=== PATIENT | female | born 1935 | race Caucasian/White ===

== ENCOUNTER 2018-01-29 | Observation (INO) | payer OTHER ==
[~2018-01-29] VITALS: Ht 167.6 cm; Wt 53.8 kg
[2018-01-29] VITALS (13 sets, daily range): BP systolic 113–166; BP diastolic 52–70; PULSE 58–103; RESP 16–23; TEMP 95.9–97.4; O2SAT 91–95
[2018-01-29] MEDS ORDERED: SODIUM CHLORIDE 0.9% FLUSH 10 ML FLUSH IVF PRN (00:15)
[2018-01-29] MEDS ORDERED: BP MED PO (00:23)
[2018-01-29] MEDS ORDERED: ALBUAER3 INH (00:30)
[2018-01-29] MEDS ORDERED: PRED10PA PO (00:30)
[2018-01-29] MEDS ORDERED: MULTTAB67 PO (00:30)
[2018-01-29] MEDS ORDERED: ADVA250A INH (00:30)
[2018-01-29] MEDS ORDERED: THYROID MED PO (00:30)
[2018-01-29] MEDS ORDERED: AMOX500C PO (00:30)
--- NOTE | 2018-01-29 00:40 | PD ---
HPI Chief Complaint: Numbness/Tingling Time Seen by Provider: 00:14 Travel History International Travel<30 days: No Contact w/Intl Traveler<30days: No Traveled to known affect area: No History of Present Illness HPI 82-year-old female with a past medical history of hypertension, COPD, hypothyroidism presents to the emergency room with one-week history of intermittent and recurrent numbness of the right side of the body including arms and legs. Today prior to arrival patient had another episode of numbness on the right arm and weakness in the right leg. Patient fell while walking landing on her right side. She denies loss of consciousness however she had her head and her right arm. A few minutes later patient regained her function on the right side and at this time she denies any numbness or weakness. Patient denies taking any blood thinners. She is currently on a Medrol Dosepak and amoxicillin for acute bronchitis with COPD exacerbation. Patient denies any chest pain, shortness of breath, abdominal pain, dizziness, fever or chills. PFSH Social History Tobacco Use: Yes Allergies-Medications (Allergen,Severity, Reaction): Coded Allergies: No Known Allergies (Unverified , 01/29/18) Reported Meds & Prescriptions Reported Meds & Active Scripts Active Reported Multiple Vitamin 1 Tab 1 Tab PO DAILY Prednisone (21) 10 mg tab Dose Pack (Prednisone) 10 Mg Pack 10 Mg PO DIRECTED Proair Hfa 8.5 GM Inh (Albuterol Sulfate) 90 Mcg/Act Aer 2 Puff INH Q4-6H PRN 108 mcg/actuation Advair Diskus Inh (Fluticasone-Salmeterol Inh) 250-50 Mcg/Blist Aer 1 Puff INH BID PRN Rinse mouth after use. Amoxicillin 500 Mg Cap 500 Mg PO BID [Thyroid Med] 1 Tab PO DAILY [Bp Med] 1 Tab PO DAILY Review of Systems Except as stated in HPI: all other systems reviewed are Neg General / Constitutional: No: Fever, Chills Eyes: No: Blurred Vision, Redness, Pain HENT: No: Rhinorrhea, Congestion, Neck Stiffness, Neck Pain, Earache Cardiovascular: No: Chest Pain or Discomfort, Palpitations, Dyspnea on exertion Respiratory: No: Cough, Shortness of Breath, Wheezing Gastrointestinal: No: Nausea, Vomiting, Diarrhea, Abdominal Pain, Hematochezia , Constipation Genitourinary: No: Dysuria Musculoskeletal: No: Myalgias Skin: No Rash, No Hives Neurologic: Positive: Weakness, Paresthesia, No: Dizziness, Syncope, Headache, Slurred Speech, Seizures Psychiatric: No: Suicidal Ideations Physical Exam Narrative Vital Signs Date Time Temp Pulse Resp B/P (MAP) Pulse Ox O2 Delivery O2 Flow Rate FiO2 01/29/18 00:20 74 01/29/18 00:07 97.4 80 20 153/68 (96) 93 GENERAL: Patient is alert and oriented -3 SKIN: Focused skin assessment warm/dry. Small abrasion on the right hand HEAD: Atraumatic. Normocephalic. EYES: Pupils equal and round. No scleral icterus. No injection or drainage. ENT: No nasal bleeding or discharge. Mucous membranes pink and moist. NECK: Trachea midline. No JVD. CARDIOVASCULAR: Regular rate and rhythm. No murmur appreciated. RESPIRATORY: No accessory muscle use. Clear to auscultation. Breath sounds equal bilaterally. GASTROINTESTINAL: Abdomen soft, non-tender, nondistended. Hepatic and splenic margins not palpable. MUSCULOSKELETAL: No obvious deformities. No clubbing. No cyanosis. No edema. NEUROLOGICAL: Awake and alert. No obvious cranial nerve deficits. Motor grossly within normal limits. Normal speech. NIH score of 0 PSYCHIATRIC: Appropriate mood and affect; insight and judgment normal. Data Data Last Documented VS Vital Signs Date Time Temp Pulse Resp B/P (MAP) Pulse Ox O2 Delivery O2 Flow Rate FiO2 01/29/18 02:06 71 18 145/52 (83) 95 Room Air 01/29/18 00:[address] Brain W/O Iv Contrast(Rout) (01/29/18 ) Electrocardiogram (01/29/18 00:14) Prothrombin Time / Inr (Pt) (01/29/18 00:14) Act Partial Throm Time (Ptt) (01/29/18 00:14) Complete Blood Count With Diff (01/29/18 00:14) Comprehensive Metabolic Panel (01/29/18 00:14) Troponin I (01/29/18 00:14) Urinalysis - C+S If Indicated (01/29/18 00:14) Chest, Single Ap (01/29/18 00:14) Ecg Monitoring (01/29/18 00:14) Iv Access Insert/Monitor (01/29/18 00:14) Oximetry (01/29/18 00:14) Sodium Chloride 0.9% Flush (Ns Flush) (01/29/18 00:15) Labs Laboratory Tests Test 01/29/18 01:15 White Blood Count 9.3 TH/MM3 Red Blood Count 4.69 MIL/MM3 Hemoglobin 13.2 GM/DL Hematocrit 40.4 % Mean Corpuscular Volume 86.2 FL Mean Corpuscular Hemoglobin 28.2 PG Mean Corpuscular Hemoglobin Concent 32.8 % Red Cell Distribution Width 13.5 % Platelet Count 226 TH/MM3 Mean Platelet Volume 8.9 FL Neutrophils (%) (Auto) 71.6 % Lymphocytes (%) (Auto) 15.9 % Monocytes (%) (Auto) 5.3 % Eosinophils (%) (Auto) 6.8 % Basophils (%) (Auto) 0.4 % Neutrophils # (Auto) 6.7 TH/MM3 Lymphocytes # (Auto) 1.5 TH/MM3 Monocytes # (Auto) 0.5 TH/MM3 Eosinophils # (Auto) 0.6 TH/MM3 Basophils # (Auto) 0.0 TH/MM3 CBC Comment DIFF FINAL Differential Comment Prothrombin Time 10.4 SEC Prothromb Time International Ratio 1.0 RATIO Activated Partial Thromboplast Time 26.6 SEC Urine Color YELLOW Urine Turbidity CLEAR Urine pH 5.5 Urine Specific [place] 1.025 Urine Protein NEG mg/dL Urine Glucose (UA) NEG mg/dL Urine Ketones NEG mg/dL Urine Occult Blood TRACE Urine Nitrite NEG Urine Bilirubin NEG Urine Urobilinogen 0.2 MG/DL Urine Leukocyte Esterase NEG Urine RBC 3-5 /hpf Urine WBC 0-2 /hpf Urine Squamous Epithelial Cells > 8 /hpf Urine Bacteria NONE /hpf Microscopic Urinalysis Comment CULT NOT INDICATED Blood Urea Nitrogen 17 MG/DL Creatinine 0.54 MG/DL Random Glucose 99 MG/DL Total Protein 7.4 GM/DL Albumin 3.7 GM/DL Calcium Level 8.8 MG/DL Alkaline Phosphatase 60 U/L Aspartate Amino Transf (AST/SGOT) 15 U/L Alanine Aminotransferase (ALT/SGPT) 21 U/L Total Bilirubin 0.4 MG/DL Sodium Level 142 MEQ/L Potassium Level 4.3 MEQ/L Chloride Level 107 MEQ/L Carbon Dioxide Level 29.7 MEQ/L Anion Gap 5 MEQ/L Estimat Glomerular Filtration Rate 108 ML/MIN Troponin I LESS THAN 0.02 NG/ML Vital Signs Date Time Temp Pulse Resp B/P (MAP) Pulse Ox O2 Delivery O2 Flow Rate FiO2 01/29/18 02:06 71 18 145/52 (83) 95 Room Air 01/29/18 01:24 74 18 142/59 (86) 94 Room Air 01/29/18 00:20 74 01/29/18 00:20 18 94 Room Air 01/29/18 00:07 97.4 80 20 153/68 (96) 93 Last 24 hours Impressions Chest X-Ray 01/29/18 0014 Signed Impressions: Service Date/Time: Monday, January 29, 2018 00:36 - CONCLUSION: 1. Hyperinflation with suggestion of biapical scarring. 2. No superimposed acute infiltrate Dedrick Hernandez MD Head CT 01/29/18 0000 Signed Impressions: Service Date/Time: Monday, January 29, 2018 00:59 - CONCLUSION: 1. Maxillary antra sinusitis bilaterally, minimal chronic findings on the right with possibly an acute sinusitis on the left. 2. Otherwise negative. No acute intracranial process to explain current clinical symptoms. Dedrick Hernandez MD [facility] Medical Decision Making Medical Screen Exam Complete: Yes Emergency Medical Condition: Yes Medical Record Reviewed: Yes Differential Diagnosis TIA, CVA, neuropathy, intracranial hemorrhage Narrative Course Patient remained stable in the emergency room with stable vitals and without focal deficits. Procedures Procedure Narrative 2 cm laceration behind the right ear lobe. Laceration was cleaned with chlorhexidine. It was glued with Dermabond. There is minimal bleeding and patient tolerated procedure well. Physician Communication Physician Communication Case was discussed with Dr. Lemus for admission to the hospital. She accepted the admission at 2:15 AM Diagnosis Primary Impression: TIA (transient ischemic attack) Additional Impressions: Head injury Scalp laceration Admitting Information Admitting Physician Requests: Observation Condition: Clemente Ledesma MD January 29, 2018 00:40
[2018-01-29 01:24] LABS: BILIRUBIN, URINE NEG (NEG); BLOOD, URINE TRACE (NEG); GLUCOSE,URINE NEG (NEG); KETONE, URINE NEG (NEG); NITRITE,URINE NEG (NEG); PH, URINE 5.5 (5.0-8.5); URINE COLOR YELLOW (YELLW/STRAW); URINE LEUKOCYTE ESTERASE NEG (NEG)
[2018-01-29 01:26] LABS: AUTOMATED NEUTROPHIL # 6.7 TH/MM3 (1.8-7.7); BASOPHIL % 0.4 % (0.0-2.0); EOSINOPHIL # 0.6 TH/MM3 (0-0.4); EOSINOPHIL % 6.8 % (0.0-4.0); HEMATOCRIT 40.4 % (35.0-46.0); HEMOGLOBIN 13.2 GM/DL (11.6-15.3); LYMPH % 15.9 % (9.0-44.0); LYMPHOCYTE # 1.5 TH/MM3 (1.0-4.8); MEAN CELL VOLUME 86.2 FL (80.0-100.0); MEAN CORPUSCULAR HEMOGLOBIN 28.2 PG (27.0-34.0); MEAN CORPUSCULAR HGB CONC 32.8 % (32.0-36.0); MEAN PLATELET VOLUME 8.9 FL (7.0-11.0); MONO % 5.3 % (0.0-8.0); MONOCYTE # 0.5 TH/MM3 (0-0.9); NEUT % 71.6 % (16.0-70.0); PLATELET COUNT 226 TH/MM3 (150-450); RED BLOOD COUNT 4.69 MIL/MM3 (4.00-5.30); RED CELL DISTRIBUTION WIDTH 13.5 % (11.6-17.2); WHITE BLOOD COUNT 9.3 TH/MM3 (4.0-11.0)
[2018-01-29 01:32] LABS: SQUAMOUS EPITHELIAL CELL URINE > 8 /hpf (0-5); WBC, URINE 0-2 /hpf (0-5)
[2018-01-29 01:33] LABS: CHLORIDE 107 MEQ/L (98-107); SODIUM (NA) 142 MEQ/L (136-145)
[2018-01-29 01:36] LABS: CALCIUM 8.8 MG/DL (8.5-10.1)
[2018-01-29 01:37] LABS: ALBUMIN 3.7 GM/DL (3.4-5.0); BICARBONATE 29.7 MEQ/L (21.0-32.0); BLOOD UREA NITROGEN 17 MG/DL (7-18); GLUCOSE,RANDOM 99 MG/DL (74-106); PROTHROMBIN TIME - PATIENT 10.4 SEC (9.8-11.6)
[2018-01-29 01:40] LABS: ALT (GPT) 21 U/L (10-53); AST (GOT) 15 U/L (15-37); CREATININE 0.54 MG/DL (0.50-1.00); GLOMERULAR FILTRATION RATE 108 ML/MIN (>89)
[2018-01-29 01:41] LABS: TOTAL BILIRUBIN ADULT 0.4 MG/DL (0.2-1.0); TOTAL PROTEIN 7.4 GM/DL (6.4-8.2)
[2018-01-29 01:43] LABS: ALKALINE PHOSPHATASE 60 U/L (45-117)
[2018-01-29 01:45] LABS: TROPONIN I LESS THAN 0.02 NG/ML (0.02-0.05)
--- NOTE | 2018-01-29 01:45 | RADRPT ---
EXAM DATE/TIME: 01/29/2018 00:36 [facility] COMPARISON: No previous studies available for comparison. INDICATIONS : Short of breath. MEDICAL HISTORY : None. SURGICAL HISTORY : None. ENCOUNTER: Initial ACUITY: 1 day PAIN SCORE: 3/10 LOCATION: Bilateral chest FINDINGS: A single view of the chest demonstrates the lungs to be symmetrically hyperinflated with suggestion o f biapical parenchymal scarring. A superimposed acute infiltrate. Heart size is normal. Levoscoliosis of the dorsal spine with associated mild degenerative changes. Osseous structures are otherwise inta ct. CONCLUSION: 1. Hyperinflation with suggestion of biapical scarring. 2. No superimposed acute infiltrate Dedrick Hernandez MD on January 29, 2018 at 1:42 Board Certified Radiologist. This report was verified electronically.
--- NOTE | 2018-01-29 01:47 | RADRPT ---
EXAM DATE/TIME: 01/29/2018 00:59 [facility] COMPARISON: No previous studies available for comparison. INDICATIONS : Right side weakness. Fall. RADIATION DOSE: 50.79 CTDIvol (mGy) MEDICAL HISTORY : None SURGICAL HISTORY : None. ENCOUNTER: Initial ACUITY: 7 - 11 months PAIN SCALE: 0/10 LOCATION: Right extremities TECHNIQUE: Multiple contiguous axial images were obtained of the head. Using automated exposure control and adj ustment of the mA and/or kV according to patient size, radiation dose was kept as low as reasonably a chievable to obtain optimal diagnostic quality images. DICOM format image data is available electro nically for review and comparison. FINDINGS: CEREBRUM: The ventricles are normal for age. No evidence of midline shift, mass lesion, hemorrhage or acute in farction. No extra-axial fluid collections are seen. POSTERIOR FOSSA: The cerebellum and brainstem are intact. The 4th ventricle is midline. The cerebellopontine angle i s unremarkable. EXTRACRANIAL: The visualized portion of the orbits is intact. Some bronchial thickening in the right maxillary antr a with a small air-fluid level in the left SKULL: The calvaria is intact. No evidence of skull fracture. CONCLUSION: 1. Maxillary antra sinusitis bilaterally, minimal chronic findings on the right with possibly an acut e sinusitis on the left. 2. Otherwise negative. No acute intracranial process to explain current clinical symptoms. Dedrick Hernandez MD on January 29, 2018 at 1:43 Board Certified Radiologist. This report was verified electronically.
[2018-01-29] MEDS ORDERED: SODIUM CHLORIDE 0.9% FLUSH 10 ML FLUSH IV FLUSH PRN (02:30)
[2018-01-29] MEDS ORDERED: GLUCAGON 1 MG/ML VIAL OTHER PRN (02:30)
[2018-01-29] MEDS ORDERED: DEXTROSE 50% IN WATER 50 ML VIAL(D50) IV PUSH PRN (02:30)
--- NOTE | 2018-01-29 08:09 | HHI.HP ---
HPI Service [facility] Primary Care Physician Mitzy Portillo Do, MD Admission Diagnosis TIA Diagnoses: (1) TIA (transient ischemic attack) Chief Complaint: Right-sided weakness and numbness Travel History International Travel<30 Days: No Contact w/Intl Traveler <30 Da: No Traveled to Known Affected Are: No History of Present Illness This is a pleasant 82-year-old female patient with a known medical history of hypertension, COPD, hypothyroidism and tobacco abuse presented to the ED with 1 week history of intermittent recurrent numbness in the right side of the body. Patient states that prior to arrival she developed a numbness in her right upper arm as well as weakness in the right lower leg. She was walking outside she lost her balance fell and hit her head, denies any loss of consciousness. Shortly after her fall she regained function of her right side. Per patient daughter was present, states that she did have some slurring of speech that was transient and resolved quickly. Patient does admit to recent cough, diagnosed with bronchitis and her PCP was given a Medrol Dosepak and amoxicillin and has taken 4 days of these medicines. Patient denies any recent fevers, chills, shortness of breath, headache, abdominal pain, nausea, vomiting, diarrhea or dysuria. Patient does deny any lightheadedness or dizziness prior to fall. Review of Systems Respiratory: COMPLAINS OF: Cough, Shortness of breath, DENIES: Sputum production Cardiovascular: DENIES: Chest pain, Palpitations Gastrointestinal: DENIES: Abdominal pain, Black stools, Bloody stools, Constipation, Diarrhea, Nausea, Vomiting Musculoskeletal: DENIES: Joint pain Hematologic/lymphatic: DENIES: Bruising Neurologic: COMPLAINS OF: Poor Balance Psychiatric: DENIES: Anxiety Except as stated in HPI: all other systems reviewed are Neg Past Family Social History Past Medical History Hypertension COPD Hypothyroidism Tobacco abuse Past Surgical History Partial hysterectomy Cervical laminectomy Hysterectomy Tonsillectomy Bilateral cataracts Reported Medications Active Reported Benzonatate 200 Mg Cap 200 Mg PO TID PRN Meclizine (Meclizine HCl) 12.5 Mg Tab 25 Mg PO DIRECTED PRN Amlodipine (Amlodipine Besylate) 5 Mg Tab 5 Mg PO DAILY Ventolin Hfa 18 GM Inh (Albuterol Sulfate) 90 Mcg/Act Aer 2 Puff INH Q6H PRN Levothyroxine (Levothyroxine Sodium) 75 Mcg Tab 75 Mcg PO DAILY Amoxicillin 875 Mg Tab 875 Mg PO BID Prednisone 5 Mg Tab 5 Mg PO BID Proair Hfa 8.5 GM Inh (Albuterol Sulfate) 90 Mcg/Act Aer 2 Puff INH Q4-6H PRN 108 mcg/actuation Allergies: Coded Allergies: No Known Allergies (Unverified , 01/29/18) Active Ordered Medications Current Medications Medications (Trade) Dose Ordered Sig/Jt Route Start Time Stop Time Status Last Admin (NS Flush) 2 ml BID IV FLUSH 01/29/18 09:00 01/29/18 09:26 (NS Flush) 2 ml UNSCH PRN IV FLUSH 01/29/18 02:30 (NovoLOG SUPPLEMENTAL SCALE) 1 ACHS SQ 01/29/18 08:00 (D50w (Vial) Inj) 50 ml UNSCH PRN IV PUSH 01/29/18 02:30 (Glucagon Inj) 1 mg UNSCH PRN OTHER 01/29/18 02:30 (Proair Hfa Inh) 2 puff BID PRN INH 01/29/18 08:15 Non-Formulary Medication 1 puff BID PRN INH 01/29/18 08:15 (Theragran) 1 tab DAILY PO 01/29/18 09:00 01/29/18 09:23 (Symbicort 160-4.5 Mcg Inh) 2 puff BID PRN INH 01/29/18 11:00 Family History Maternal medical history significant for Alzheimer's. Father had TB. Brothers and sisters has a history of cardiovascular disease. Social History Does admit to smoking 1 pack per day of cigarettes since the age of 21. Denies any alcohol or illicit drug use. Physical Exam Vital Signs Vital Signs Date Time Temp Pulse Resp B/P (MAP) Pulse Ox O2 Delivery O2 Flow Rate FiO2 01/29/18 04:00 75 01/29/18 04:00 96.1 72 18 166/70 (102) 94 01/29/18 03:31 74 16 137/56 (83) 95 Room Air 01/29/18 02:50 68 18 154/56 (88) 94 Room Air 01/29/18 02:06 71 18 145/52 (83) 95 Room Air 01/29/18 01:24 74 18 142/59 (86) 94 Room Air 01/29/18 00:20 74 01/29/18 00:20 18 94 Room Air 01/29/18 00:07 97.4 80 20 153/68 (96) 93 Physical Exam GENERAL: Well-developed, well-nourished patient in [facility]. SKIN: Warm and dry. No rash. HEAD: Normocephalic. Atraumatic. EYES: Pupils equal and round. No scleral icterus. No injection or drainage. ENT: No nasal bleeding or discharge. Mucous membranes pink and moist. NECK: Supple. Trachea midline. CARDIOVASCULAR: Regular rate and rhythm. S1, S2 noted. No murmur appreciated. RESPIRATORY: No accessory muscle use. Clear to auscultation. Breath sounds equal bilaterally. GASTROINTESTINAL: Abdomen soft, non-tender, nondistended. Normoactive bowel sounds x4. MUSCULOSKELETAL: No obvious deformities. Extremities without clubbing, cyanosis , or edema. NEUROLOGICAL: Awake and alert. No obvious cranial nerve deficits. Motor grossly within normal limits. 5/5 muscle strength in bilateral upper and lower extremities. Normal speech. PSYCHIATRIC: Appropriate mood and affect; insight and judgment normal. Laboratory Laboratory Tests Test 01/29/18 01:15 White Blood Count 9.3 Red Blood Count 4.69 Hemoglobin 13.2 Hematocrit 40.4 Mean Corpuscular Volume 86.2 Mean Corpuscular Hemoglobin 28.2 Mean Corpuscular Hemoglobin Concent 32.8 Red Cell Distribution Width 13.5 Platelet Count 226 Mean Platelet Volume 8.9 Neutrophils (%) (Auto) 71.6 Lymphocytes (%) (Auto) 15.9 Monocytes (%) (Auto) 5.3 Eosinophils (%) (Auto) 6.8 Basophils (%) (Auto) 0.4 Neutrophils # (Auto) 6.7 Lymphocytes # (Auto) 1.5 Monocytes # (Auto) 0.5 Eosinophils # (Auto) 0.6 Basophils # (Auto) 0.0 CBC Comment DIFF FINAL Differential Comment Prothrombin Time 10.4 Prothromb Time International Ratio 1.0 Activated Partial Thromboplast Time 26.6 Urine Color YELLOW Urine Turbidity CLEAR Urine pH 5.5 Urine Specific [place] 1.025 Urine Protein NEG Urine Glucose (UA) NEG Urine Ketones NEG Urine Occult Blood TRACE Urine Nitrite NEG Urine Bilirubin NEG Urine Urobilinogen 0.2 Urine Leukocyte Esterase NEG Urine RBC 3-5 Urine WBC 0-2 Urine Squamous Epithelial Cells > 8 Urine Bacteria NONE Microscopic Urinalysis Comment CULT NOT INDICATED Blood Urea Nitrogen 17 Creatinine 0.54 Random Glucose 99 Total Protein 7.4 Albumin 3.7 Calcium Level 8.8 Alkaline Phosphatase 60 Aspartate Amino Transf (AST/SGOT) 15 Alanine Aminotransferase (ALT/SGPT) 21 Total Bilirubin 0.4 Sodium Level 142 Potassium Level 4.3 Chloride Level 107 Carbon Dioxide Level 29.7 Anion Gap 5 Estimat Glomerular Filtration Rate 108 Troponin I LESS THAN 0.02 Result Diagram: 01/29/18 0115 01/29/18 0115 Imaging Last Impressions Chest X-Ray 01/29/18 0014 Signed Impressions: Service Date/Time: Monday, January 29, 2018 00:36 - CONCLUSION: 1. Hyperinflation with suggestion of biapical scarring. 2. No superimposed acute infiltrate Dedrick Hernandez MD Head Magnetic Resonance Angiography 01/29/18 0000 Signed Impressions: Service Date/Time: Monday, January 29, 2018 09:49 - CONCLUSION: Unremarkable MRA of the brain. Bhavik Kessler MD Head CT 01/29/18 0000 Signed Impressions: Service Date/Time: Monday, January 29, 2018 00:59 - CONCLUSION: 1. Maxillary antra sinusitis bilaterally, minimal chronic findings on the right with possibly an acute sinusitis on the left. 2. Otherwise negative. No acute intracranial process to explain current clinical symptoms. Dedrick Hernandez MD Carotid Artery Ultrasound 01/29/18 0000 Signed Impressions: Service Date/Time: Monday, January 29, 2018 07:59 - CONCLUSION: 1. Bilateral carotid plaque with resultant mild, less than 50%%, stenosis bilaterally. 2. Antegrade vertebral artery flow bilaterally. Jose Antonio Viveros MD Brain MRI 01/29/18 0000 Signed Impressions: Service Date/Time: Monday, January 29, 2018 09:49 - CONCLUSION: 1. Mild chronic white matter changes characteristic for patient's age. 2. Chronic sinus disease in both maxillary sinuses. 3. Otherwise, unremarkable exam for patient's age. Bhavik Kessler MD Septic Shock Reassessment Septic shock perfusion: reassessment completed Caprini VTE Risk Assessment Caprini VTE Risk Assessment: Mod/High Risk (score >= 2) Caprini Risk Assessment Model Point Value = 1 Point Value = 2 Point Value = 3 Point Value = 5 Age 41-60 Minor surgery BMI > 25 kg/m2 Swollen legs Varicose veins or History of unexplained or recurrent spontaneous Oral contraceptives or hormone replacement Sepsis (< 1 month) Serious lung disease, including pneumonia (< 1 month) Abnormal pulmonary function Acute myocardial infarction Congestive heart failure (< 1 month) History of inflammatory bowel disease Medical patient at bed rest Age 61-74 Arthroscopic surgery Major open surgery (> 45 min) Laparoscopic surgery (> 45 min) Malignancy Confined to bed (> 72 hours) Immobilizing plaster cast Central venous access Age >= 75 History of VTE Family history of VTE Factor V Leiden Prothrombin [id number] Lupus anticoagulant Anticardiolipin antibodies Elevated serum homocysteine Heparin-induced thrombocytopenia Other congenital or acquired thrombophilia Stroke (< 1 month) Elective arthroplasty Hip, pelvis, or leg fracture Acute spinal cord injury (< 1 month) Prophylaxis Regimen Total Risk Factor Score Risk Level Prophylaxis Regimen 0-1 Low Early ambulation 2 Moderate Order ONE of the following: *Sequential Compression Device (SCD) *Heparin 5000 units SQ BID 3-4 Higher Order ONE of the following medications: *Heparin 5000 units SQ TID *Enoxaparin/Lovenox 40 mg SQ daily (WT < 150 kg, CrCl > 30 mL/min) *Enoxaparin/Lovenox 30 mg SQ daily (WT < 150 kg, CrCl > 10-29 mL/min) *Enoxaparin/Lovenox 30 mg SQ BID (WT < 150 kg, CrCl > 30 mL/min) AND/OR *Sequential Compression Device (SCD) 5 or more Highest Order ONE of the following medications: *Heparin 5000 units SQ TID (Preferred with Epidurals) *Enoxaparin/Lovenox 40 mg SQ daily (WT < 150 kg, CrCl > 30 mL/min) *Enoxaparin/Lovenox 30 mg SQ daily (WT < 150 kg, CrCl > 10-29 mL/min) *Enoxaparin/Lovenox 30 mg SQ BID (WT < 150 kg, CrCl > 30 mL/min) AND *Sequential Compression Device (SCD) Assessment and Plan Problem List: (1) TIA (transient ischemic attack) ICD Code: G45.9 - Transient cerebral ischemic attack, unspecified Status: Acute Assessment and Plan This is a pleasant 82-year-old female patient with a known medical history of hypertension, COPD, hypothyroidism and tobacco abuse presented to the ED with 1 week history of intermittent recurrent numbness in the right side of the body. Near syncope rule out TIA versus CVA versus cardiac etiology - Patient does admit to fall at home, did hit her head denies any loss of consciousness. - Head CT reviewed showing maxillary sinusitis. No acute intracranial process. Head MRA unremarkable, brain MRI with chronic white matter changes. - Carotid ultrasound showing bilateral plaque less than 50%. Awaiting echocardiogram, pending and follow. - Orthostatic blood pressures ordered. Pending and follow. - Neuro consulted, appreciate input recommendations. Started on daily aspirin. History of COPD not in exacerbation - Recently finished steroid Dosepak and antibiotics. - Continue home inhalers. Stable at this time. Supportive care. - Chest x-ray showing chronic COPD. No acute infiltrate. Hypertension, chronic: Patient is unaware of which medicine she takes at home. Stable at this time will allow some permissive hypertension. Monitor BP trends. Hypothyroidism, chronic: TSH 2.3. Patient is unaware of levothyroxine dose. Daughter is bringing from home. Will monitor. DVT prophylaxis: SCDs. Heparin. Jennifer Perez January 29, 2018 08:09
[2018-01-29] MEDS ORDERED: NON-FORMULARY DRUG (Fluticasone-Salmeterol Inh (Advair Diskus Inh) 1 PUFF) INH PRN (08:15)
[2018-01-29] MEDS ORDERED: ALBUTEROL SULFATE 90 MCG/ACT HFA 8 GM INHALER INH PRN (08:15)
--- NOTE | 2018-01-29 09:20 | RADRPT ---
EXAM DATE/TIME: 01/29/2018 07:59 [facility] COMPARISON: No previous studies available for comparison. INDICATIONS : Transient ischemic attack. MEDICAL HISTORY : Hypertension. Stomach ulcer. Arthritis. Osteoporosis. COPD. SURGICAL HISTORY : Hysterectomy. Ulcer repaired. Cervical laminectomy. ENCOUNTER: Initial ACUITY: 1 day PAIN SCORE: 0/10 LOCATION: Bilateral neck PEAK SYSTOLIC VELOCITIES (cm/sec): ICA/CCA RATIO: Right: 1.3 Left: 1.6 ICA: Right: 102 Left: 112 CCA: Right: 77 Left: 70 ECA: Right: 112 Left: 95 VERTEBRAL: Right: 72 antegrade Left: 70 antegrade Elevated flow velocities and ICA/CCA ratios have been found to correlate with increased degrees of vessel stenosis, calculated as percentage of diameter relative to a normal segment of distal ICA/CCA FINDINGS: RIGHT CAROTID: No significant stenosis is visualized. The waveforms are within normal limits. LEFT CAROTID: No significant stenosis is visualized. The waveforms are within normal limits. VERTEBRAL ARTERIES: Antegrade flow is seen in both vertebral arteries. MISCELLANEOUS: None. CONCLUSION: 1. Bilateral carotid plaque with resultant mild, less than 50%, stenosis bilaterally. 2. Antegrade vertebral artery flow bilaterally. Jose Antonio Viveros MD on January 29, 2018 at 9:16 Board Certified Radiologist. This report was verified electronically.
[2018-01-29] MEDS: MULTIVITAMIN TAB PO SCH (09:23)
[2018-01-29] MEDS: INSULIN ASPART SUPPLEMENTAL SCALE SQ SCH ×4 (09:26→21:00)
[2018-01-29] MEDS: SODIUM CHLORIDE 0.9% FLUSH 10 ML FLUSH IV FLUSH SCH ×2 (09:26→21:18)
--- NOTE | 2018-01-29 10:24 | EKG ---
Date Performed: 01/29/2018 Time Performed: 00:36:04 PTAGE: 82 years EKG: Sinus rhythm Poor R-wave progression, cannot exclude septal infarct vs. lead placement NO PREVIOUS TRACING DOCTOR: Jhonatan Turner Interpretating Date/Time 01/29/2018 10:23:53
--- NOTE | 2018-01-29 10:25 | RADRPT ---
EXAM DATE/TIME: 01/29/2018 09:49 [facility] COMPARISON: MRI BRAIN W/O CONTRAST, January 29, 2018, 9:49. INDICATIONS : TIA. Episode of right arm numbness and leg numbness. Fall. MEDICAL HISTORY : Hypertension. Chronic obstructive pulmonary disease. Hypothyroidism. SURGICAL HISTORY : Fusion, cervical. Hysterectomy. Cataract. Stomach surgery. ENCOUNTER: Subsequent ACUITY: 2 day PAIN SCORE: 0/10 LOCATION: head. Please note a normal MRA of the brain does not entirely exclude the possibility of a small aneurysm, nor the possibility of distal intracranial vessel disease. TECHNIQUE: 3D time of flight MRA was performed. Source images, multiplanar STS MIP, and 3D volume MIP reconstru ctions were reviewed. FINDINGS: There is excellent visualization of the major intracranial arteries out to the second-order branch ve ssels. There is no evidence for aneurysm, vessel truncation or stenosis, and no evidence for vascula r malformation. There are bilateral patent posterior communicating arteries. CONCLUSION: Unremarkable MRA of the brain. Bhavik Kessler MD on January 29, 2018 at 10:22 Board Certified Radiologist. This report was verified electronically.
--- NOTE | 2018-01-29 10:27 | RADRPT ---
EXAM DATE/TIME: 01/29/2018 09:49 [facility] COMPARISON: MRA BRAIN W/O CONTRAST, January 29, 2018, 9:49. CT BRAIN W/O CONTRAST, January 29, 2018, 0:59. INDICATIONS : TIA. Episode of right arm numbness and leg numbness. Fall. MEDICAL HISTORY : Hypothyroidism. Chronic obstructive pulmonary disease. Hypertension. SURGICAL HISTORY : Fusion, cervical. Hysterectomy. Cataracts. Stomach surgery. ENCOUNTER: Subsequent ACUITY: 2 day PAIN SCORE: 0/10 LOCATION: head. TECHNIQUE: Multiplanar, multisequence MRI of the brain was performed without contrast. FINDINGS: CEREBRUM: The ventricles are normal for age. No evidence of midline shift, mass lesion, hemorrhage or acute in farction. No extraaxial fluid collections are seen. The pituitary gland and suprasellar cistern are normal in configuration. WHITE MATTER: No significant signal abnormalities are seen in the white matter. A few high signal spots are seen in the white matter tracks bilaterally characteristic of ischemic demineralization. POSTERIOR FOSSA: The cerebellum and brainstem are intact. The 4th ventricle is midline. The cerebellopontine angle is unremarkable. The cerebellar tonsils are normal in position. DIFFUSION IMAGING: No focal areas of restricted diffusion are seen. No evidence of acute infarction. EXTRACRANIAL: The visualized portions of the orbits are unremarkable. There is chronic sinus disease in the base o f both maxillary sinuses. CONCLUSION: 1. Mild chronic white matter changes characteristic for patient's age. 2. Chronic sinus disease in both maxillary sinuses. 3. Otherwise, unremarkable exam for patient's age. Bhavik Kessler MD on January 29, 2018 at 10:23 Board Certified Radiologist. This report was verified electronically.
[2018-01-29] MEDS ORDERED: BUDESONIDE-FORMOTEROL 160/4.5 MCG INHALER INH PRN (11:00)
[2018-01-29] MEDS ORDERED: PRED5TAB PO (11:10)
[2018-01-29] MEDS ORDERED: AMOX875T PO (11:10)
[2018-01-29] MEDS ORDERED: LEVO75TA3 PO (11:11)
[2018-01-29] MEDS ORDERED: VENTAER INH (11:12)
[2018-01-29] MEDS ORDERED: AMLO5TAB2 PO (11:13)
[2018-01-29] MEDS ORDERED: MECL12.574 PO (11:16)
[2018-01-29] MEDS ORDERED: BENZ1CAP51 PO (11:16)
[2018-01-29] MEDS: ASPIRIN 325 MG TAB PO SCH (13:45)
[2018-01-29 15:28] LABS: HEMOGLOBIN A1C 5.8 % (4.3-6.0)
--- NOTE | 2018-01-29 15:50 | MB ---
cc: Caridad Kang MD DATE: 01/29/2018 REASON FOR CONSULTATION: TIA. HISTORY OF PRESENT ILLNESS: A pleasant 82-year-old woman with history of hypertension, COPD, hypothyroidism, chronic tobacco abuse, comes in with some intermittent symptoms on the right side, trouble speaking. She thought it may have been due to some numbness she has had from her lower back, but day of admission, she was unable to talk. She tried to go out on the and fell and hit her head. No loss of consciousness. Her right side improved, and she was brought into the hospital. Currently, she is walking around in the room. She has no complaints. HOME MEDICINES: Meclizine, amlodipine, Ventolin, Synthroid, amoxicillin, prednisone, ProAir, benzonatate. ALLERGIES: NONE REPORTED. SOCIAL HISTORY: She is a smoker. She lives with her daughter. No alcohol history. PHYSICAL EXAMINATION: VITAL SIGNS: Temperature is 97.4, pulse 59, respiratory rate 20, blood pressure supine 154/61, standing 113/62. There is some orthostatic component. NECK: Supple. No appreciable bruits. HEART: Regular. NEUROLOGIC: She is awake, alert. She is oriented, fluent. Pupils reactive. Visual meek full. Face symmetrical. Tongue midline. Motor joya, she does not exhibit any drift, leg lag. Her strength, hand plate stacker joya and proximally and distally, is intact. Cerebellar testing is normal. DTRs are 1+. Gait is withheld. She has been walking around the room. Defer to PT. LABORATORY DATA: Reviewed. B12, thiamin pending. Hemoglobin A1c pending. IMAGING: MRI brain did not show any acute findings. MRA: [place] without any intracranial stenosis. Carotids less than 50% bilaterally. IMPRESSION: Transient ischemic attack like symptoms. She may have had a fall versus near syncope due to orthostasis. Recommend putting her on an aspirin. Monitor her blood pressure, hydrate. Check an echo, check a lipid panel and if her echo comes back unremarkable and vitals are stable, can be discharged and follow up with neurology as an outpatient. Again, she was counseled on smoking. Caridad Kang MD DF/TWIN , 03:34 PM , 03:49 PM
--- NOTE | 2018-01-29 16:56 | ECHRPT ---
Indication: CVA/TIA CONCLUSIONS Normal left ventricular size. EF=60% Mild concentric left ventricular hypertrophy. The left ventricular systolic function is grossly normal on limited imaging. The left atrial size is moderately dilated. The right atrial size is moderately dilated. mild to moderate mitral valve regurgitation. Moderate mitral annular calcification. Mild thickening of the mitral valve leaflets. Aortic valve sclerosis is present. [id number] aortic valve regurgitation. There is mild to moderate tricuspid valve regurgitation. The estimated pulmonary arterial pressure is 43.2 mmHg. BP: 166 / 70 HR: 74 Rhythm: Sinus MEASUREMENTS (Male / Female) Normal Values Technical Quality:Fair 2D ECHO LV Diastolic Diameter PLAX 3.6 cm 4.2 - 5.9 / 3.9 - 5.3 cm LV Systolic Diameter PLAX 2.4 cm IVS Diastolic Thickness 1.1 cm 0.6 - 1.0 / 0.6 - 0.9 cm LVPW Diastolic Thickness 1.1 cm 0.6 - 1.0 / 0.6 - 0.9 cm LV Relative Wall Thickness 0.6 RV Internal Dim ED PLAX 2.6 cm LVOT Diameter 2.0 cm Aortic Root Diameter 3.1 cm LA Systolic Diameter LX 3.0 cm 3.0 - 4.0 / 2.7 - 3.8 cm M-MODE AV Cusp Separation MM 1.6 cm DOPPLER AV Peak Velocity 203.0 cm/s AV Peak Gradient 16.5 mmHg AV Mean Gradient 8.0 mmHg AV Velocity Time Integral 46.1 cm AI Peak Velocity 431.0 cm/s AI Peak Gradient 74.3 mmHg AI Pressure Half Time 463.0 ms LVOT Peak Velocity 97.8 cm/s LVOT Peak Gradient 3.8 mmHg LVOT Velocity Time Integral 25.3 cm AV Area Cont Eq vti 1.7 cm AV Area Cont Eq pk 1.5 cm Mitral E Point Velocity 98.7 cm/s Mitral A Point Velocity 114.0 cm/s Mitral E to A Ratio 0.9 LV E' Lateral Velocity 7.0 cm/s Mitral E to LV E' Lateral Ratio 14.1 LV E' Septal Velocity 6.9 cm/s Mitral E to LV E' Septal Ratio 14.3 TR Peak Velocity 288.0 cm/s TR Peak Gradient 33.2 mmHg Right Atrial Pressure 10.0 mmHg Pulmonary Artery Systolic Pressu 43.2 mmHg Right Ventricular Systolic Press 43.2 mmHg PV Peak Velocity 43.6 cm/s PV Peak Gradient 0.8 mmHg FINDINGS LEFT VENTRICLE Normal left ventricular size. Mild concentric left ventricular hypertrophy. The left ventricular systolic function is grossly normal on limited imaging. RIGHT VENTRICLE Normal right ventricular size and systolic function. LEFT ATRIUM The left atrial size is moderately dilated. RIGHT ATRIUM The right atrial size is moderately dilated. ATRIAL SEPTUM No atrial level shunt is demonstrated by color flow Doppler interrogation. AORTA The aortic root and proximal ascending aorta are not well visualized. MITRAL VALVE Moderate mitral valve regurgitation. Moderate mitral annular calcification. Mild thickening of the mitral valve leaflets. AORTIC VALVE Aortic valve sclerosis is present. [id number] aortic valve regurgitation. TRICUSPID VALVE There is mild to moderate tricuspid valve regurgitation. The estimated pulmonary arterial pressure is 43.2 mmHg. PULMONARY VALVE The pulmonary valve is not well visualized. VESSELS The inferior vena cava is normal in size. PERICARDIUM No pericardial effusion. Colby Simpson MD, FACC, [facility] [place] (Electronically Signed) Final Date:29 Jan 2018 16:56
[2018-01-29] MEDS: HEPARIN SODIUM - SQ 10,000 UNITS/ML VIAL SQ SCH (21:17)
[2018-01-30] VITALS: BP 121/59; PULSE 69; RESP 20; TEMP 97.1; O2SAT 91
[2018-01-30 04:00] VITALS: BP 117/53; PULSE 60; RESP 20; TEMP 96.4; O2SAT 90
[2018-01-30 06:35] LABS: AUTOMATED NEUTROPHIL # 2.7 TH/MM3 (1.8-7.7); BASOPHIL % 0.6 % (0.0-2.0); EOSINOPHIL # 0.7 TH/MM3 (0-0.4); HEMATOCRIT 39.3 % (35.0-46.0); HEMOGLOBIN 13.4 GM/DL (11.6-15.3); LYMPH % 38.4 % (9.0-44.0); LYMPHOCYTE # 2.3 TH/MM3 (1.0-4.8); MEAN CELL VOLUME 84.7 FL (80.0-100.0); MEAN CORPUSCULAR HEMOGLOBIN 28.7 PG (27.0-34.0); MEAN CORPUSCULAR HGB CONC 33.9 % (32.0-36.0); MEAN PLATELET VOLUME 9.2 FL (7.0-11.0); MONO % 6.9 % (0.0-8.0); MONOCYTE # 0.4 TH/MM3 (0-0.9); NEUT % 43.1 % (16.0-70.0); PLATELET COUNT 227 TH/MM3 (150-450); RED BLOOD COUNT 4.65 MIL/MM3 (4.00-5.30); RED CELL DISTRIBUTION WIDTH 13.8 % (11.6-17.2); WHITE BLOOD COUNT 6.1 TH/MM3 (4.0-11.0)
[2018-01-30 06:44] LABS: BICARBONATE 31.2 MEQ/L (21.0-32.0); CALCIUM 8.8 MG/DL (8.5-10.1)
[2018-01-30 06:48] LABS: CREATININE 0.6 MG/DL (0.50-1.00)
[2018-01-30] MEDS: INSULIN ASPART SUPPLEMENTAL SCALE SQ SCH ×2 (07:43→11:38)
[2018-01-30 08:00] VITALS: BP 115/53; PULSE 73; PULSE 84; RESP 17; TEMP 96.5; O2SAT 94
[2018-01-30] MEDS ORDERED: GETGO ROLLING W1 MI1 (08:34)
--- NOTE | 2018-01-30 08:46 | HHI.PR ---
Subjective Remarks Follow-up TIA symptoms. Patient seen and examined, sitting up in chair comfortably no apparent distress. States she feels much improved. No further weakness. PT has worked with patient, no recommendations for home PT. Echocardiogram reviewed. Labs stable. Lipids negative. Discharged today follow-up PCP and neurology outpatient. Positive orthostatics, will discontinue Norvasc from home. Blood pressure has been stable without it. PCP to follow-up. Objective Vitals Vital Signs Date Time Temp Pulse Resp B/P (MAP) Pulse Ox O2 Delivery O2 Flow Rate FiO2 01/30/18 08:00 96.5 73 17 115/53 (73) 94 01/30/18 04:00 96.4 60 20 117/53 (74) 90 01/30/18 00:00 97.1 69 20 121/59 (79) 91 01/29/18 20:20 58 01/29/18 20:00 96.8 103 23 131/57 (81) 91 01/29/18 15:33 95.9 65 20 152/69 (96) 93 01/29/18 12:21 59 154/61 (92) 128/59 (82) 113/62 (79) Automatic Cuff 01/29/18 11:37 97.4 62 20 136/61 (86) 92 I/O 01/29/18 01/29/18 01/29/18 01/30/18 01/30/18 01/30/18 07:00 15:00 23:00 07:00 15:00 23:00 Intake Total 0 ml 1440 ml 240 ml Balance 0 ml 1440 ml 240 ml Intake Oral 0 ml 1440 ml 240 ml # Voids 0 3 4 # Bowel Movements 0 Result Diagram: 01/30/18 0550 01/30/18 0550 Imaging Last Impressions Chest X-Ray 01/29/18 0014 Signed Impressions: Service Date/Time: Monday, January 29, 2018 00:36 - CONCLUSION: 1. Hyperinflation with suggestion of biapical scarring. 2. No superimposed acute infiltrate Dedrick Hernandez MD Head Magnetic Resonance Angiography 01/29/18 0000 Signed Impressions: Service Date/Time: Monday, January 29, 2018 09:49 - CONCLUSION: Unremarkable MRA of the brain. Bhavik Kessler MD Head CT 01/29/18 0000 Signed Impressions: Service Date/Time: Monday, January 29, 2018 00:59 - CONCLUSION: 1. Maxillary antra sinusitis bilaterally, minimal chronic findings on the right with possibly an acute sinusitis on the left. 2. Otherwise negative. No acute intracranial process to explain current clinical symptoms. Dedrick Hernandez MD Carotid Artery Ultrasound 01/29/18 0000 Signed Impressions: Service Date/Time: Monday, January 29, 2018 07:59 - CONCLUSION: 1. Bilateral carotid plaque with resultant mild, less than 50%%, stenosis bilaterally. 2. Antegrade vertebral artery flow bilaterally. Jose Antonio Viveros MD Brain MRI 01/29/18 0000 Signed Impressions: Service Date/Time: Monday, January 29, 2018 09:49 - CONCLUSION: 1. Mild chronic white matter changes characteristic for patient's age. 2. Chronic sinus disease in both maxillary sinuses. 3. Otherwise, unremarkable exam for patient's age. Bhavik Kessler MD Objective Remarks GENERAL: Well-developed, well-nourished patient in NAD. SKIN: Warm and dry. No rash. HEAD: Normocephalic. Atraumatic. EYES: Pupils equal and round. No scleral icterus. No injection or drainage. ENT: No nasal bleeding or discharge. Mucous membranes pink and moist. NECK: Supple. Trachea midline. CARDIOVASCULAR: Regular rate and rhythm. S1, S2 noted. No murmur appreciated. RESPIRATORY: No accessory muscle use. Clear to auscultation. Breath sounds equal bilaterally. GASTROINTESTINAL: Abdomen soft, non-tender, nondistended. Normoactive bowel sounds x4. MUSCULOSKELETAL: No obvious deformities. Extremities without clubbing, cyanosis , or edema. NEUROLOGICAL: Awake and alert. No obvious cranial nerve deficits. Motor grossly within normal limits. 5/5 muscle strength in bilateral upper and lower extremities. Normal speech. PSYCHIATRIC: Appropriate mood and affect; insight and judgment normal. A/P Problem List: (1) TIA (transient ischemic attack) ICD Code: G45.9 - Transient cerebral ischemic attack, unspecified Status: Acute Assessment and Plan This is a pleasant 82-year-old female patient with a known medical history of hypertension, COPD, hypothyroidism and tobacco abuse presented to the ED with 1 week history of intermittent recurrent numbness in the right side of the body. Near syncope rule out TIA versus CVA versus cardiac etiology - Patient does admit to fall at home, did hit her head denies any loss of consciousness. - Head CT reviewed showing maxillary sinusitis. No acute intracranial process. Head MRA unremarkable, brain MRI with chronic white matter changes. - Carotid ultrasound showing bilateral plaque less than 50%. Echocardiogram reviewed showing adequate EF. Mild left ventricular hypertrophy. - Orthostatic blood pressures ordered and mildly positive. Patient has been off antihypertensives since presentation, will discontinue this upon discharge and follow-up with PCP. Patient's symptoms likely secondary to positive orthostatics. Patient encouraged to take her time when getting up and transferring from lying to standing. - Neuro consulted, appreciate input recommendations. Started on daily aspirin. History of COPD not in exacerbation - Recently finished steroid Dosepak and antibiotics. - Continue home inhalers. Stable at this time. Supportive care. - Chest x-ray showing chronic COPD. No acute infiltrate. Hypertension, chronic: Stable since presentation. Will discontinue Norvasc. Follow-up with PCP manage. Hypothyroidism, chronic: TSH 2.3. Continue home Levothyroxine. DVT prophylaxis: SCDs. Heparin. Jennifer Perez January 30, 2018 08:46
--- NOTE | 2018-01-30 08:50 | HHI.DCPOC ---
Discharge Care Plan Diagnosis: (1) Scalp laceration (2) TIA (transient ischemic attack) (3) Orthostasis (4) Head injury Goals to Promote Your Health * To prevent worsening of your condition and complications * To maintain your health at the optimal level Directions to Meet Your Goals Take your medications as prescribed Follow your dietary instruction Follow activity as directed Keep your appointments as scheduled Take your immunizations and boosters as scheduled If your symptoms worsen call your PCP, if no PCP go to Urgent Care Center or Emergency Room Smoking is Dangerous to Your Health. Avoid second hand smoke Call the 24-hour hour crisis hotline for domestic abuse at Jennifer Perez January 30, 2018 08:50
[2018-01-30] MEDS ORDERED: ASA325 PO (08:52)
[2018-01-30] MEDS ORDERED: THERTAB15 PO (08:52)
[2018-01-30] MEDS: HEPARIN SODIUM - SQ 10,000 UNITS/ML VIAL SQ SCH (09:00)
[2018-01-30] MEDS: MULTIVITAMIN TAB PO SCH (09:23)
[2018-01-30] MEDS: ASPIRIN 325 MG TAB PO SCH (09:24)
[2018-01-30] MEDS: SODIUM CHLORIDE 0.9% FLUSH 10 ML FLUSH IV FLUSH SCH (09:24)
[2018-01-30 10:42] LABS: CHOLESTEROL/ HDL RATIO 2.16 RATIO; HDL CHOLESTEROL 87.5 MG/DL (40.0-60.0)
== END 2018-01-30 11:55 | disposition home or self-care (01) ==
LOC: PHED → PHEDA 02:23 → PH3A 03:48
PROVIDERS: ADMIT Hospitalist; ATTEND Hospitalist
DX: G45.9 Transient cerebral ischemic attack, unspecified (principal); I10 Essential (primary) hypertension; E03.9 Hypothyroidism, unspecified; S01.01XA Laceration without foreign body of scalp, initial encounter; S01.311A Laceration without foreign body of right ear, initial encounter; J44.9 Chronic obstructive pulmonary disease, unspecified; J32.0 Chronic maxillary sinusitis; F17.210 Nicotine dependence, cigarettes, uncomplicated; Z79.899 Other long term (current) drug therapy; W01.0XXA Fall on same level from slipping, tripping and stumbling without subsequent striking against object, initial encounter
CPT/HCPCS: 12011; 70450; 70544; 70551; 71045; 80048; 80053; 80061; 81001; 82607; 82948; 83036; 84425; 84443; 84484; 85025; 85610; 85730; 93005; 93306; 93880; 96372; 97162; 99285; G0378; G8987; G8988; J1644